=== PATIENT | male | born 1955 | race Caucasian/White ===

== ENCOUNTER 2018-05-18 05:25 | Day surgery (SDC) | payer MEDICARE ==
[2018-05-17 10:15] VITALS: BP 182/96
[~2018-05-18] VITALS: Ht 182.9 cm; Wt 74.0 kg
[~2018-05-18 05:25] MED LIST: LEDI1TAB PO; LEVO25TA4 PO
[2018-05-18 06:38] VITALS: BP 182/96
[2018-05-18] MEDS ORDERED: LACTATED RINGERS 1,000 ML IV SCH (06:44)
[2018-05-18] MEDS ORDERED: SUCCINYLCHOLINE 20 MG/ML, 10ML ONE (07:28)
[2018-05-18] MEDS ORDERED: PROPOFOL 10 MG/ML, 20ML ONE (07:28)
[2018-05-18] MEDS ORDERED: ROCURONIUM 10 MG/ML,10ML ONE (07:28)
[2018-05-18] MEDS ORDERED: ONDANSETRON 2MG/ML, 2ML ONE (07:28)
[2018-05-18] MEDS ORDERED: DEXAMETHASONE 4 MG/ML, 1ML ONE (07:28)
[2018-05-18] MEDS ORDERED: FENTANYL PF 100 MCG/2ML ONE (07:29)
[2018-05-18] MEDS ORDERED: MIDAZOLAM 1 MG/ML, 2ML ONE (07:29)
[2018-05-18] MEDS ORDERED: MEPERIDINE/PF 25MG/0.5ML IVPush PRN (08:00)
[2018-05-18] MEDS ORDERED: KETOROLAC 30 MG/1 ML IV PRN (08:00)
[2018-05-18] MEDS ORDERED: hydrALAzine 20 MG/ML, 1ML IV PRN (08:00)
[2018-05-18] MEDS ORDERED: LABETALOL 5MG/ML, 20ML IV PRN (08:00)
[2018-05-18] MEDS ORDERED: FENTANYL PF 100 MCG/2ML IV PRN (08:00)
[2018-05-18] MEDS ORDERED: ACETAMINOPHEN 325 MG TABLET PO PRN (08:00)
[2018-05-18] MEDS ORDERED: ALBUTEROL SULFATE 2.5 MG/3 ML NPPB PRN (08:00)
[2018-05-18] MEDS ORDERED: DIAZEPAM 5 MG/ML, 2ML IVPush PRN (08:00)
[2018-05-18] MEDS ORDERED: PROMETHAZINE 25 MG/ML, 1ML IV PRN (08:00)
[2018-05-18] MEDS ORDERED: HYDROmorphone 2 MG/ML, 1ML IVPush PRN (08:00)
[2018-05-18] MEDS ORDERED: OXYcodone 5 MG/5 ML ORAL.SOL UDC PO PRN (08:00)
[2018-05-18] MEDS ORDERED: OXYcodone 5 MG/5 ML ORAL.SOL UDC ONE (09:51)
[2018-05-18] MEDS ORDERED: ACETAMINOPHEN 650 MG/20.3 ML UDC ONE (09:52)
== END 2018-05-18 12:30 | disposition home or self-care (01) ==
LOC: OUT 05:25
PROVIDERS: ATTEND Urology
DX: N20.0 Calculus of kidney (principal)
CPT/HCPCS: 50590; 74018; 93005; J0330; J1100; J2250; J2405; J2704; J3010; J7120

== ENCOUNTER → 2018-11-15 | Outpatient (CLI) | payer MEDICARE | END | disposition home or self-care (01) | LOC: CFH 08:17 | PROVIDERS: ATTEND Nurse Practitioner Family | DX: K76.89 Other specified diseases of liver (principal); K74.60 Unspecified cirrhosis of liver | CPT/HCPCS: 76700 ==

== ENCOUNTER 2020-04-13 11:43 | Emergency (ER) | payer MEDICARE ==
[~2020-04-13] VITALS: Ht 182.9 cm; Wt 71.8 kg
[2020-04-13 11:45] VITALS: BP 152/95
--- NOTE | 2020-04-13 11:52 | NUR ---
ECG IN TRIAGE
[2020-04-13] MEDS ORDERED: MECLIZINE CHEWABLE 25 MG TAB ONE (12:18)
--- NOTE | 2020-04-13 12:26 | NUR ---
PT AMBULATED TO RESTROOM WITH STEADY GAIT TO PROVIDE URINE SAMPLE. UA COLLECTED AND SENT TO LAB. AUTOMOTIVE TECHNICIAN PER AUG. LABS DRAWN BY GENERAL INTERNAL MEDICINE DOCTOR.
[2020-04-13] MEDS ORDERED: MECLIZINE CHEWABLE 25 MG TAB PO ONE (12:30)
[2020-04-13 12:46] LABS: BASOPHILS % (AUTO) 0 % (0-1); EOSINOPHILS % (AUTO) 1 % (1-7); LYMPHOCYTES % (AUTO) 18 % (22-44); MD NO; MEAN CORPUSCULAR HEMOGLOBIN 30.5 pg (27.5-34.5); MEAN PLATELET VOLUME 8.7 fL (7.4-10.4); MONOCYTES % (AUTO) 6 % (2-9); NEUTROPHILS % (AUTO) 75 % (42-75); PLATELET COUNT 109 x10^3/uL (130-400); RED BLOOD COUNT 5.57 x10^6/uL (4.38-5.82)
[2020-04-13 12:48] LABS: MICROSCOPIC NOT IND
[2020-04-13 12:55] LABS: ALANINE AMINOTRANSFERASE 20 U/L (12-78); ALBUMIN 4.2 g/dL (3.4-5.0); ANION GAP 4 mmol/L (5-15); CALCIUM 9.6 mg/dL (8.5-10.1); CHLORIDE 108 mmol/L (98-107)
[2020-04-13 12:57] LABS: ALKALINE PHOSPHATASE 65 U/L (45-117); BILIRUBIN,TOTAL 0.9 mg/dL (0.2-1.0); CREATININE 1.32 mg/dL (0.7-1.3); TOTAL PROTEIN 7.6 g/dL (6.4-8.2)
--- NOTE | 2020-04-13 12:59 | NUR ---
ALL RESULTS ARE BACK AT THIS TIME. CHART UP FOR RECHECK.
--- NOTE | 2020-04-13 13:10 | NUR ---
RECEIVED N/O FOR CT.
--- NOTE | 2020-04-13 13:42 | NUR ---
ALL RESULTS ARE BACK AT THIS TIME. CHART UP FOR RECHECK
== END 2020-04-13 14:54 | disposition home or self-care (01) ==
LOC: ED 12:11
DX: R42 Dizziness and giddiness (principal); R51.9 Headache, unspecified; R94.31 Abnormal electrocardiogram [ECG] [EKG]; Z86.39 Personal history of other endocrine, nutritional and metabolic disease
CPT/HCPCS: 36415; 70450; 80053; 81003; 85025; 93005; 99285